=== PATIENT | female | born 1945 | race Caucasian/White ===

== ENCOUNTER → 2018-04-14 | Outpatient (CLI) | payer MEDICARE | END | disposition home or self-care (01) | LOC: CFH 11:24 | PROVIDERS: ATTEND Allergy & Immunology | DX: R05 Cough (principal) | CPT/HCPCS: 71046 ==

== ENCOUNTER 2018-08-02 02:53 | Inpatient (IN) | payer MEDICARE ==
[~2018-08-02] VITALS: Ht 172.7 cm; Wt 82.1 kg
--- NOTE | 2018-08-02 03:05 | NUR ---
LUQ ABD PAIN "IT CAME ON SUDDEN." PT ALSO REPORTS NAUSEA BUT NO VOMITING. PAIN IS INTERMITTANT, BUT COMES ON STRONG. PA AT BESIDE, CALL LIGHT IN REACH
[2018-08-02 03:29] LABS: BASOPHILS # (AUTO) 0.02 x10^3/uL (0-0.1); BASOPHILS % (AUTO) 0 % (0-1); EOSINOPHILS # (AUTO) 0.18 x10^3/uL (0-0.4); EOSINOPHILS % (AUTO) 4 % (1-7); LYMPHOCYTES # (AUTO) 0.85 x10^3/uL (1-3.4); LYMPHOCYTES % (AUTO) 16 % (22-44); MD NO; MEAN CORPUSCULAR HEMOGLOBIN 29.9 pg (27.0-34.8); MEAN CORPUSCULAR HGB CONC 33.8 g/dL (32.4-35.8); MEAN CORPUSCULAR VOLUME 88.6 fL (80-100); MEAN PLATELET VOLUME 7.8 fL (7.4-10.4); MONOCYTES # (AUTO) 0.31 x10^3/uL (0.2-0.8); MONOCYTES % (AUTO) 6 % (2-9); NEUTROPHILS # (AUTO) 3.88 x10^3/uL (1.8-6.8); NEUTROPHILS % (AUTO) 74 % (42-75); PLATELET COUNT 155 x10^3/uL (130-400); RED BLOOD COUNT 4.37 x10^6/uL (3.82-5.3); RED CELL DISTRIBUTION WIDTH 12.9 % (9.6-15.2)
[2018-08-02] MEDS ORDERED: ONDANSETRON 2MG/ML, 2ML IVPush ONE (03:30)
[2018-08-02] MEDS ORDERED: MORPHINE SULFATE 4 MG/ML, 1ML IVPush PRN ×2 (03:30→07:30)
[2018-08-02 03:42] LABS: ALANINE AMINOTRANSFERASE 26 U/L (12-78); ANION GAP 4 mmol/L (5-15); CALCIUM 8.8 mg/dL (8.5-10.1); CHLORIDE 108 mmol/L (98-107)
[2018-08-02 03:46] LABS: ALKALINE PHOSPHATASE 41 U/L (45-117); BILIRUBIN,TOTAL 0.5 mg/dL (0.2-1.0); TROPONIN I < 0.015 ng/mL (0.000-0.045)
[2018-08-02] MEDS ORDERED: ONDANSETRON 2MG/ML, 2ML ONE (04:05)
[2018-08-02] MEDS ORDERED: MORPHINE SULFATE 4 MG/ML, 1ML ONE (04:06)
--- NOTE | 2018-08-02 04:20 | NUR ---
IV ACCESS OBTAINED, PT MEDICATED PER eMAR
[2018-08-02] MEDS ORDERED: OMNIPAQUE 350 MG/ML, 100ML BOTTLE ONE (04:34)
--- NOTE | 2018-08-02 04:45 | NUR ---
PT BACK FROM CT, ATTACHED TO PULSE OX AND BP, VSS, CALL LIGHT IN REACH
[2018-08-02] MEDS ORDERED: PRAV10TA2 PO (05:42)
[2018-08-02] MEDS ORDERED: ASPI-496 PO (05:43)
[2018-08-02] MEDS ORDERED: SERT25TA3 PO (05:44)
[2018-08-02] MEDS ORDERED: MELO15TA24 PO (05:45)
[2018-08-02] MEDS ORDERED: SODIUM CHLORIDE 0.9% 1,000ML IVBOLUS ONE (06:00)
[2018-08-02] MEDS ORDERED: MIDAZOLAM 1 MG/ML, 2ML ONE (06:17)
[2018-08-02] MEDS ORDERED: FENTANYL PF 100 MCG/2ML ONE (06:17)
[2018-08-02] MEDS ORDERED: SUCCINYLCHOLINE 20 MG/ML, 10ML ONE (06:40)
[2018-08-02] MEDS ORDERED: PROPOFOL 10 MG/ML, 20ML ONE (06:40)
[2018-08-02] MEDS ORDERED: CEFAZOLIN 1,000 MG ONE (06:40)
[2018-08-02] MEDS ORDERED: BUPIVACAINE/PF-EPI 0.5% 1:200K ONE (06:40)
[2018-08-02] MEDS ORDERED: ROCURONIUM 10 MG/ML,10ML ONE (06:40)
[2018-08-02] MEDS ORDERED: SUGAMMADEX 200 MG/2 ML IVPush ONE (07:17)
[2018-08-02] MEDS ORDERED: FENTANYL PF 100 MCG/2ML IV PRN (07:30)
[2018-08-02] MEDS ORDERED: HYDROmorphone 2 MG/ML, 1ML IVPush PRN (07:30)
[2018-08-02] MEDS ORDERED: METOCLOPRAMIDE 5 MG/ML, 2ML IV PRN (07:30)
[2018-08-02] MEDS ORDERED: LABETALOL 5MG/ML, 20ML IV PRN (07:30)
[2018-08-02] MEDS ORDERED: LORazepam 2 MG/ML, 1ML IVPush PRN (07:30)
[2018-08-02] MEDS ORDERED: MEPERIDINE/PF 25MG/0.5ML IVPush PRN (07:30)
[2018-08-02] MEDS ORDERED: hydrALAzine 20 MG/ML, 1ML IV PRN (07:30)
[2018-08-02] MEDS ORDERED: OXYcodone 5 MG/5 ML ORAL.SOL UDC PO PRN (07:30)
[2018-08-02] MEDS ORDERED: HYDROmorphone 1 MG/ML, 1ML VIAL ONE (07:51)
[2018-08-02] MEDS ORDERED: OXYcodone 5 MG/5 ML ORAL.SOL UDC ONE (07:51)
[2018-08-02] MEDS ORDERED: ONDANSETRON 2MG/ML, 2ML IV PRN (09:30)
[2018-08-02] MEDS ORDERED: OXYcodone/APAP 5/325MG TABLET PO PRN (09:30)
[2018-08-02] MEDS ORDERED: morphine SULFATE 10 MG/ML, 1ML ONE (09:41)
[2018-08-02] MEDS ORDERED: MORPHINE SULFATE 4 MG/ML, 1ML IVPush ONE (10:00)
[2018-08-02] MEDS: D5%-0.45NACL+KCL 20MEQ 1,000 ML IV SCH (11:30)
[2018-08-02 13:40] LABS: MICROSCOPIC NOT IND
[2018-08-02 13:43] LABS: CULTURE INDICATED? NO
[2018-08-02] MEDS: IBUPROFEN 600 MG TABLET PO PRN ×2 (15:13→21:04)
[2018-08-02 15:33] VITALS: BP 142/82
[2018-08-02 20:15] VITALS: BP 108/11
[2018-08-03] MEDS: D5%-0.45NACL+KCL 20MEQ 1,000 ML IV SCH (00:03)
[2018-08-03 02:56] VITALS: BP 100/60
[2018-08-03] MEDS: IBUPROFEN 600 MG TABLET PO PRN ×3 (03:22→15:01)
[2018-08-03 05:16] LABS: MEAN CORPUSCULAR HEMOGLOBIN 30.5 pg (27.0-34.8); MEAN CORPUSCULAR HGB CONC 34.8 g/dL (32.4-35.8); MEAN CORPUSCULAR VOLUME 87.7 fL (80-100); MEAN PLATELET VOLUME 7.5 fL (7.4-10.4); PLATELET COUNT 132 x10^3/uL (130-400); RED BLOOD COUNT 3.74 x10^6/uL (3.82-5.3); RED CELL DISTRIBUTION WIDTH 13.3 % (9.6-15.2)
[2018-08-03 05:24] LABS: ANION GAP 6 mmol/L (5-15); CALCIUM 7.5 mg/dL (8.5-10.1); CHLORIDE 106 mmol/L (98-107)
[2018-08-03 05:25] LABS: CREATININE 0.81 mg/dL (0.55-1.02)
[2018-08-03 05:43] LABS: MD YES
[2018-08-03 05:50] LABS: BANDS%(MANUAL) 9 % (0-7); EOS#(MANUAL) 0.07 x10^3/uL (0.0-0.4); EOS% (MANUAL) 3 % (1-7); LYMPH#(MANUAL) 1.03 x10^3/uL (1-3.4); LYMPHS% (MANUAL) 47 % (22-44); MONOS#(MANUAL) 0.22 x10^3/uL (0.3-2.7); MONOS% (MANUAL) 10 % (2-9); REACTIVE LYMPHS # (MANUAL) 0.02 x10^3/uL (0-0); REACTIVE LYMPHS % (MANUAL) 1 % (0-0); SEG#(MANUAL) 0.66 x10^3/uL (1.8-6.8); SEGS% (MANUAL) 30 % (42-75)
[2018-08-03 05:52] LABS: <PLATELET ESTIMATE> ADEQUATE; <PLT MORPHOLOGY> NORMAL PLT MORPH; <RBC MORPHOLOGY> NORMAL
[2018-08-03 07:26] VITALS: BP 93/56
[2018-08-03 13:56] VITALS: BP 94/57
[2018-08-03] MEDS ORDERED: OXYC-302 PO (15:37)
[2018-08-03] MEDS ORDERED: POLY17PO5 PO (15:39)
[2018-08-03 17:40] VITALS: BP 104/62
[2018-08-03] MEDS ORDERED: SODIUM CHLORIDE FLUSH 3ML SYRINGE IVF SCH (21:00)
== END 2018-08-03 18:05 | disposition home or self-care (01) | DRG 356 ==
LOC: ED 05:22 → EDIP 05:38 → 4NOR 09:04
PROVIDERS: ADMIT Colon & Rectal Surgery; ATTEND Colon & Rectal Surgery
PROC: 0WJP0ZZ Inspection of Gastrointestinal Tract, Open Approach (ICD-10-PCS; 2018-08-02)
PROC: 0WJG4ZZ Inspection of Peritoneal Cavity, Percutaneous Endoscopic Approach (ICD-10-PCS; principal; 2018-08-02 06:00)
DX: K52.9 Noninfective gastroenteritis and colitis, unspecified (principal); R65.11 Systemic inflammatory response syndrome (SIRS) of non-infectious origin with acute organ dysfunction; K56.699 Other intestinal obstruction unspecified as to partial versus complete obstruction; J45.909 Unspecified asthma, uncomplicated; E78.00 Pure hypercholesterolemia, unspecified; I10 Essential (primary) hypertension; Z87.891 Personal history of nicotine dependence; Z53.31 Laparoscopic surgical procedure converted to open procedure
CPT/HCPCS: 36415; 74177; 80048; 80053; 81003; 83605; 83690; 84484; 85025; 93005; 96374; 96375; G0378; J0690; J1170; J2250; J2405; J2704; J3010; Q9967; J0330; J3480

== ENCOUNTER → 2019-07-05 | Outpatient (CLI) | payer MEDICARE, OTHER ==
[~2019-07-05] MED LIST: ASPI-496 PO; MELO15TA24 PO; OXYC-302 PO; POLY17PO5 PO; PRAV10TA2 PO; SERT25TA3 PO
== END | disposition home or self-care (01) ==
LOC: CVU 10:23
PROVIDERS: ATTEND Surgery Vascular Surgery
DX: I83.10 Varicose veins of unspecified lower extremity with inflammation (principal); R60.9 Edema, unspecified
CPT/HCPCS: 93971